=== PATIENT | male | born 1975 | race African-American/Black ===

== ENCOUNTER 2023-08-10 01:46 | Emergency (ER) | payer OTHER ==
[~2023-08-10] VITALS: Ht 177.8 cm; Wt 110.0 kg
[2023-08-10 04:39] VITALS: BP 184/97; PULSE 82; RESP 18; TEMP 97.8; O2SAT 99
[2023-08-10] MEDS ORDERED: IBUP-1455 PO (04:46)
[2023-08-10] MEDS ORDERED: HYDR-4798 PO (04:46)
[2023-08-10] MEDS: HYDROcodone-ACET 10/325MG TAB PO ONE (05:06)
== END 2023-08-10 05:52 | disposition home or self-care (01) ==
LOC: ER 01:46 → EDBD 01:46 → ER 05:52
DX: S82.831A Other fracture of upper and lower end of right fibula, initial encounter for closed fracture (principal); E11.9 Type 2 diabetes mellitus without complications; I10 Essential (primary) hypertension; X58.XXXA Exposure to other specified factors, initial encounter; Y93.89 Activity, other specified; Y92.89 Other specified places as the place of occurrence of the external cause; Y99.8 Other external cause status
CPT/HCPCS: 29515; 73610